=== PATIENT | female | born 1960 | race Caucasian/White ===

== ENCOUNTER → 2018-12-06 | Outpatient (CLI) | payer BC | LOC: CIMAGING 12:06 | PROVIDERS: ATTEND Family Medicine | DX: J45.909 Unspecified asthma, uncomplicated (principal); R05 Cough; R53.83 Other fatigue | CPT/HCPCS: 70220-PO; 71046-PO ==

== ENCOUNTER 2018-12-13 15:33 | Emergency (ER) | payer BC ==
[2018-12-13] MEDS ORDERED: LABETALOL HCL 5 MG/ML 20 ML MDV IVP ONE (16:14)
[2018-12-13] MEDS ORDERED: METOCLOPRAMIDE 10 MG/2 ML VIAL IVP ONE (16:41)
[2018-12-13] MEDS ORDERED: KETOROLAC 15 MG/1 ML SDV IVP ONE (16:41)
[2018-12-13] MEDS ORDERED: ACETAMINOPHEN 500 MG TAB PO ONE (17:23)
[2018-12-13] MEDS ORDERED: METOPROLOL TARTRATE 25 MG TAB PO ONE (19:00)
--- NOTE | 2018-12-13 19:02 | EDPHY ---
H & P Stated Complaint: orta and left sided weakness and numb for over a week Time Seen by Provider: 12/13/18 15:53 HPI/ROS: This patient presents with headache left frontal in location over the past 8 days or so. She explains that she was "sick" describing a URI treated with Augmentin and ibuprofen and improved, however she has had headache that started as mild and has worsened over the past 2 days to 7/10 intensity currently, achy in nature, left frontal, worse with movement associated with mild photophobia. She also describes numbness to her left hand and foot in a stocking-glove distribution concurrent with the headache. She also reveals that she stop taking her blood pressure medicine a month ago-amlodipine and hydrochlorothiazide because she felt that it made her "head funny". She described the like it is difficult to concentrate. ROS: Constitutional: No fevers HEENT: No sore throat. No ear pain. No head trauma. Pulmonary: No dyspnea cough or other complaints Cardiovascular: No chest pain. No heart palpitations. GI: No nausea or vomiting : No complaints Integumentary: No rash Neuro: As per HPI. No confusion. No focal weakness. 10 point review of symptoms is performed and otherwise negative with exception of pertinent positives and negatives listed in HPI and ROS Source: Patient Exam Limitations: No limitations - Personal History Current Tetanus Diphtheria and Acellular Pertussis (TDAP): Yes Tetanus Vaccine Date: 12/30/2011 - Medical/Surgical History PMH: Hypertension Hx Asthma: No Hx Chronic Respiratory Disease: No Hx Diabetes: No Hx Cardiac Disease: No Hx Renal Disease: No Hx Cirrhosis: No Hx Alcoholism: No Hx HIV/AIDS: No Hx Splenectomy or Spleen Trauma: No Other PMH: Med hx-HTN,GERD. Surg-none - Family History Significant Family History: No pertinent family hx - Social History Smoking Status: Never smoked Alcohol Use: None Drug Use: None Additional Social History: Works in an [employer] - Physical Exam Exam: Physical exam: Vital signs are except for significant hypertension initially to 208/101 with a manual blood pressure similar-190/98 General: Patient is in no acute distress. HEENT: Is no external evidence of trauma on exam. Eyes: Pupils are equal and reactive to light. Extraocular motions are intact. Optic fundi: Clear with no papilledema or hemorrhage. Nose atraumatic. Ears: Clear bilaterally with no hemotympanum. Oropharynx: No dental trauma or malocclusion. No intraoral lacerations. Eyes: Pupils are equal and reactive to light. Extraocular motions are intact. Optic fundi: Clear with no papilledema or hemorrhage. Lungs: Clear to auscultation bilaterally Neck: Supple no meningismus. Cardiac: Regular rate and rhythm no murmur gallop or rub. Abdomen: Soft nontender no organomegaly Neuro: GCS of 15. Cranial nerves II through XII intact. The patient has decreased light touch sensation to pinprick in left hand and arm and left leg gave her her an NIH stroke scale initially of 2. Appreciate no motor weakness or other deficits. Cerebellar exam is normal as judged by symmetric rapid hand movements bilaterally. Initial differential diagnosis: Migraine, tension headache, D[employer] lesion, intracranial bleed, hypertensive encephalopathy Constitutional: Initial Vital Signs Temperature (C) 36.5 C 12/13/18 15:40 Heart Rate 65 12/13/18 15:40 Respiratory Rate 16 12/13/18 15:40 Blood Pressure 208/101 H 12/13/18 15:40 O2 Sat (%) 97 12/13/18 15:40 O2 Delivery Mode Nasal Cannula O2 (L/minute) 2 Allergies/Adverse Reactions: No Known Allergies Allergy (Verified 12/13/18 16:12) Home Medications: Medication Instructions Recorded Metoprolol Tartrate [Lopressor 25 25 mg PO DAILY #30 tab 12/13/18 mg (*)] Medical Decision Making - Diagnostics EKG Interpretation: 12 lead EKG indication hypertension rule out cardiac strain or injury performed at 3:51 p.m. Sinus rhythm at 60 Intervals: Normal throughout [place]: P of 17, QRS of -80, T of 19 Overall assessment sinus rhythm with LVH by voltage criteria. Imaging Results: Imaging Impressions Head CT 12/13/18 16:14 Impression: Normal brain. No acute hemorrhage or swelling. ED Course/Re-evaluation: IV, monitor Labetalol 20 mg IV with improvement her blood pressure to 160s over 80s. Her headache is treated with Reglan Benadryl, Toradol and Tylenol with complete relief. Her neuro symptoms also resolved with this treatment. Labs: Normal POC CBC, metabolic panel and LFTs. Discussion: Patient presented with a migraine-like headache in the setting of significant hypertension but responded very well to treatment. CT head is normal. Given her complete resolution of symptoms with treatment I do not feel that we need to pursue further neuro imaging at this time. On repeat neuro exam she had normal light touch sensation after treatment. I suspect that her deficit was a part of a migraine aura. I counseled regarding this. She maintains normal mental status with no significant evidence of encephalopathy clinically. Will start her on metoprolol 25 mg a day since she did not like the side effects from amlodipine and encouraged her to restart her hydrochlorothiazide. I advised her to take ibuprofen Tylenol for any recurrent headaches and to follow up with primary care physician when 3 days for recheck her blood pressure. She understands need to return emergency department should she develop worsening symptoms despite treatment plan. - Data Points Laboratory Results: 12/13/18 12/13/18 12/13/18 16:28 16:14 16:11 POC Sodium 141 mEq/L mEq/L (135-145) POC Potassium 3.9 mEq/L mEq/L (3.3-5.0) POC Chloride 107.0 mEq/L mEq/L (97-110) POC Total CO2 26 mEq/L mEq/L (22-31) POC BUN 8 mg/dL mg/dL (7-23) POC Creatinine 0.7 mg/dL mg/dL (0.6-1.0) POC Glucose 91 mg/dL mg/dL (70-100) POC Calcium 9.6 mg/dL mg/dL (8.5-10.4) POC Total Bilirubin 1.2 mg/dL mg/dL (0.1-1.4) POC GGT 33 IU/L IU/L (5-65) POC AST 37 IU/L IU/L (14-46) POC ALT 30 IU/L IU/L (9-52) POC Alk Phosphatase 83 IU/L IU/L (38-126) POC Troponin I 0.00 ng/mL ng/mL (0.00-0.08) POC Total Protein 8.0 g/dL g/dL (6.3-8.2) POC Albumin 4.4 g/dL g/dL (3.5-5.0) POC Amylase 26 IU/L L IU/L (30-110) Medications Given: Discontinued Medications Acetaminophen (Tylenol) 1,000 mg PO EDNOW ONE Stop: 12/13/18 17:24 Last Admin: 12/13/18 17:27 Dose: 1,000 mg Diphenhydramine HCl (Benadryl Injection) 25 mg IVP EDNOW ONE Stop: 12/13/18 16:42 Last Admin: 12/13/18 17:01 Dose: 25 mg Ketorolac Tromethamine (Toradol) 15 mg IVP EDNOW ONE Stop: 12/13/18 16:42 Last Admin: 12/13/18 17:05 Dose: 15 mg Labetalol HCl (Trandate Injection) 20 mg IVP EDNOW ONE Stop: 12/13/18 16:15 Last Admin: 12/13/18 16:31 Dose: 20 mg Metoclopramide HCl (Reglan Injection) 10 mg IVP EDNOW ONE Stop: 12/13/18 16:42 Last Admin: 12/13/18 17:10 Dose: 10 mg Point of Care Test Results: CBC CBC Collection Date 12/13/18 CBC Collection Time 16:00 WBC 7.27 RBC 5.22 HGB 15.2 HCT 45.4 PLT 240 Neut # 4.03 Neut 55.4 LYMPH # 2.65 LYMPH 36.5 MCV 87.0 Chemistry 12/13/18 12/13/18 12/13/18 16:28 16:14 16:11 POC Sodium 141 mEq/L mEq/L (135-145) POC Potassium 3.9 mEq/L mEq/L (3.3-5.0) POC Chloride 107.0 mEq/L mEq/L (97-110) POC Total CO2 26 mEq/L mEq/L (22-31) POC BUN 8 mg/dL mg/dL (7-23) POC Creatinine 0.7 mg/dL mg/dL (0.6-1.0) POC Glucose 91 mg/dL mg/dL (70-100) POC Calcium 9.6 mg/dL mg/dL (8.5-10.4) POC Total Bilirubin 1.2 mg/dL mg/dL (0.1-1.4) POC GGT 33 IU/L IU/L (5-65) POC AST 37 IU/L IU/L (14-46) POC ALT 30 IU/L IU/L (9-52) POC Alk Phosphatase 83 IU/L IU/L (38-126) POC Troponin I 0.00 ng/mL ng/mL (0.00-0.08) POC Total Protein 8.0 g/dL g/dL (6.3-8.2) POC Albumin 4.4 g/dL g/dL (3.5-5.0) POC Amylase 26 IU/L L IU/L (30-110) Liver Function Tests LFT Collection Date 12/13/18 LFT Collection Time 16:00 Departure - Departure Disposition: Home, Routine, Self-Care Clinical Impression: Migraine headache with aura Qualifiers: Status migrainosus presence: with status migrainosus Intractability: not intractable Qualified Code(s): G43.101 - Migraine with aura, not intractable, with status migrainosus Hypertension Qualifiers: Hypertension type: essential hypertension Qualified Code(s): I10 - Essential ( primary) hypertension Condition: Good Instructions: Migraine Headache (ED), Chronic Hypertension (ED) Additional Instructions: Diagnosis: 1. Migraine with aura 2. Hypertension Plan: Start metoprolol blood pressure medication 25 mg a day in addition to hydrochlorothiazide to control her blood pressure. Ibuprofen and Tylenol if needed for any recurrent headaches. Follow up with primary care physician within the next 3-7 days to recheck blood pressure. Consider follow up with neurologist regarding migraines . Return emergency department for any significant worsening despite the treatment plan Referrals: Courtney Magana MD [Primary Care Provider] - As per Instructions Eran Vieira DO [Medical Doctor] - As per Instructions Prescriptions: Metoprolol Tartrate [Lopressor 25 mg (*)] 25 mg PO DAILY #30 tab
[2018-12-13 19:41] VITALS: BP 131/66
--- NOTE | 2018-12-13 20:21 | CPEKG ---
Test Reason : OPEN Blood Pressure : / mmHG Vent. Rate : 060 BPM Atrial Rate : 061 BPM P-R Int : 166 ms QRS Dur : 092 ms QT Int : 424 ms P-R-T Axes : 017 -08 019 degrees QTc Int : 424 ms Sinus rhythm Left ventricular hypertrophy Confirmed by Saqib Victoria ([id number]) on 12/13/2018 8:20:57 PM Referred By: PHYSICIAN ED Confirmed By:Saqib Victoria
== END 2018-12-13 19:38 | disposition home or self-care (01) ==
LOC: CED 15:33
DX: G43.101 Migraine with aura, not intractable, with status migrainosus (principal); I10 Essential (primary) hypertension
CPT/HCPCS: 70450-PO; 80048-ER; 80076-ER; 82150-ER; 84484-ER; 85025-QW-ER; 85379-QW-ER; 96374-ER; 96375-ER; 96376-ER; 99285-ER; J1200; J1885; J2765

== ENCOUNTER → 2019-01-31 | Outpatient (CLI) | payer BC | LOC: CIMAGING 15:10 ==